=== PATIENT | female | born 1970 | race Caucasian/White ===

== ENCOUNTER 2025-06-13 15:06 | Outpatient (CLI) | payer OTHER ==
[2025-06-13 16:19] LABS: Alkaline Phosphatase 109 U/L (46-116); Calcium 9.3 mg/dL (8.7-10.4); Carbon Dioxide 25 mmol/L (20-31); Chloride 104 mmol/L (98-107)
[2025-06-13 16:20] LABS: Anion Gap 12 (5-15); BUN/Creatinine Ratio 9.1 (10.0-20.0); Bilirubin, Total 0.8 mg/dL (0.2-1.0); Cholesterol 172 mg/dL (< 200); Glucose 88 mg/dL (74-106); HDL Cholesterol 43 mg/dL (40-59); Iron 80.0 ug/dL (50-170); Potassium 3.9 mmol/L (3.5-5.1); Sodium 141 mmol/L (136-145); Total Protein 8.0 g/dL (5.7-8.2)
[2025-06-13 16:21] LABS: Hematocrit 42.7 % (36.0-46.0); Hemoglobin 14.5 g/dL (12.2-16.2); Mean Corpuscular Hemoglobin 28.8 pg (28.0-32.0); Mean Corpuscular Volume 85.0 fL (80.0-100.0); Nucleated Red Blood Cells % 0.1 %
[2025-06-13 16:23] LABS: Total Iron Binding Capacity 354.0 ug/dL (250-425)
[2025-06-13 16:26] LABS: Alanine Aminotransferase 58 U/L (7-40); Albumin 4.9 g/dL (3.2-4.8); Blood Urea Nitrogen 8 mg/dL (9-23); Triglycerides 185 mg/dL (< 150)
[2025-06-15 12:15] LABS: Hepatitis A Total Antibody Positive (Negative); Hepatitis B Surface Antigen Negative (Negative); Hepatitis C Antibody Negative (Negative)
== END 2025-06-14 17:00 | disposition home or self-care (01) ==
LOC: LAB 15:06
PROVIDERS: ATTEND Licensed Practical Nurse
DX: E55.9 Vitamin D deficiency, unspecified (principal); R53.83 Other fatigue; Z13.29 Encounter for screening for other suspected endocrine disorder; Z00.01 Encounter for general adult medical examination with abnormal findings; Z13.1 Encounter for screening for diabetes mellitus
CPT/HCPCS: 36415; 80053; 80061; 82043; 82306; 82728; 83036; 83540; 83550; 84443; 85025; 86704; 86706; 86708; 86803; 87340